=== PATIENT | female | born 1965 | race Caucasian/White ===

== ENCOUNTER 2023-12-30 22:33 | Emergency (ER) | payer BC, SELFPAY ==
--- NOTE | ~2023-12-30 | XR_ITS ---
XR chest 1V portable Ordering provider: Maciel Hartman MD History: 58 years Female with . syncope . Comparison: May 07, 2010 FINDINGS: MEDIASTINUM: The cardiac silhouette is not enlarged. LUNGS: No infiltrates, effusions or pneumothorax. OTHER: No free air under the diaphragm. Degenerative changes of the spine. IMPRESSION: No acute cardiopulmonary pathology. Reviewed, dictated and finalized at location A.
[2023-12-30 22:34] VITALS: BP 103/65; PULSE 72; RESP 15; TEMP 36.3; O2SAT 98
--- NOTE | 2023-12-30 22:42 | ECG_ITS ---
Test Date: 2023-12-30 22:41:17 Measurements Intervals [place] Rate: 70 P: -1 SC: 169 QRS: 78 QRSD: 103 T: 54 QT: 419 QTc: 455 Interpretive Statements SINUS RHYTHM INCOMPLETE RIGHT BUNDLE BRANCH BLOCK [90+ ms QRS DURATION, TERMINAL R IN V1/V2, 40+ ms S IN I/aVL/V4/V5/V6] NONSPECIFIC ST AND T-WAVE ABNORMALITY No previous ECG available for comparison Electronically Signed On 12-31-2023 10:35:52 CDT by Marivel Laureano M.D.
[2023-12-30 23:08] LABS: Basophils Percent Auto 0.6 % (0.2-1.2); Eosinophils Absolute Auto 0.1 K/mm3 (0-0.3); Eosinophils Percent Auto 0.9 % (0-4.4); Hematocrit 39.1 % (37.0-47.0); Hemoglobin 13.1 g/dL (12.0-15.0); Immature Granulocyte Absolute 0.01 K/mm3 (0.00-0.031); Immature Granulocyte Percent A 0.1 % (0-0.5); Lymphocytes Absolute Auto 2.08 K/mm3 (0.9-3.2); Lymphocytes Percent Auto 29.5 % (18.3-44.2); Mean Corpuscular HGB Conc 33.5 g/dl (32-36); Mean Corpuscular Hemoglobin 28.4 pg (26-34); Mean Corpuscular Volume 84.6 fl (80-100); Mean Platelet Volume 9.8 fl (7.4-10.4); Monocytes Absolute Auto 0.4 K/mm3 (0.1-0.6); Neutrophils Absolute Auto 4.4 K/mm3 (1.3-6.7); Neutrophils Percent Auto 62.9 % (45.5-73.1); Platelet Count Result 242 k/mm3 (150-375); Red Blood Count 4.62 M/mm3 (4.2-5.4); Red Cell Distribution Width 12.7 % (11.5-14.5)
[2023-12-30 23:17] VITALS: BP 116/66; BP 119/65; PULSE 79
[2023-12-30 23:17] LABS: Alanine Aminotransferase 22 U/L (6-35); Albumin Level 4.3 g/dL (3.5-5.1); Alkaline Phosphatase 54 U/L (38-126); Anion Gap 11 mmol/L (4-12); Aspartate Amino Transferase 28 U/L (14-36); Bilirubin,Total 0.3 mg/dL (0.2-1.3); Blood Urea Nitrogen 20 mg/dL (7-17); Carbon Dioxide 26 mmol/L (22-30); Chloride 103 mmol/L (98-107); Estimated CRCL calculation 46 ml/min; Estimated Glomerular Filt Rate 46; Glucose 136 mg/dL (65-110); Potassium 3.4 mmol/L (3.4-5.0); Sodium 140 mmol/L (137-145)
[2023-12-30 23:19] VITALS: BP 114/71; PULSE 82
[2023-12-30 23:21] LABS: Magnesium 2.4 mg/dL (1.6-2.3)
[2023-12-30 23:35] LABS: D Dimer < 0.27 ug/mL (<0.48)
[2023-12-30] MEDS: SODIUM CHLORIDE 0.9% IV 1,000 ML 999 ML IV CONT (23:36)
[2023-12-31] MEDS: SODIUM CHLORIDE 0.9% IV 1,000 ML 999 ML IV CONT (00:25)
[2023-12-31 00:41] VITALS: BP 114/75; PULSE 81; RESP 15; O2SAT 97
[2023-12-31 00:52] LABS: Add Urine Microscopic? YES; Appearance Urine Clear (Clear); Bacteria Urine None Seen /hpf; Bilirubin Urine Negative (Negative); Blood Urine Negative (Negative); Color Urine Yellow (Yellow); Glucose Urine UA Negative (Negative); Hyaline Casts Urine Present /lpf; Ketones Urine Trace mg/dL (Negative); Leukocyte Esterase Ur 1+ LEU/UL (Negative); Need Manual Microscopic Reviewed; Nitrate Urine Negative (Negative); Protein Urine 1+ mg/dL (Negative); RBC Urine 0-2 /hpf (0-2); Specific Grav Ur 1.021 (1.001-1.035); Squamous Epithelial Cell Urine Occasional /hpf (Few); WBC Urine 0-5 /hpf (0-3); pH Urine 5.5 (5.0-9.0)
--- NOTE | 2023-12-31 01:20 | ED.GENADULT ---
HPI - General Adult General Chief complaint: Syncope Stated complaint: syncope Time Seen by Provider: 12/30/23 22:50 History of Present Illness HPI narrative: Patient is a 58-year-old female presents emergency department with chief complaint of syncope. Patient had 3 syncopal episodes and during 1 of the episodes blood pressure dropped down in the 80s patient was found have a right bundle branch block on her EKG by EMS the patient denies chest pain reports that she has not been eating and drinking much lately and does tend renal on the dehydrated side. Patient reports that she has had no trauma reports that she has had no prior history of dysrhythmia Related Data Home Medications Medication Instructions Recorded Confirmed atorvastatin 10 mg tablet 10 mg PO DAILY 06/14/22 06/20/23 escitalopram oxalate 10 mg tablet 10 mg PO DAILY 06/14/22 06/20/23 (Lexapro) lisinopril 10 mg tablet 10 mg PO DAILY 06/14/22 06/20/23 Allergies Allergy/AdvReac Type Severity Reaction Status Date / Time No Known Allergies Allergy Verified 12/30/23 22:42 Review of Systems Review of Systems: A 10 system review of systems was completed on the patient and is negative except for what is stated in the HPI. Nursing and ancillary documentation was reviewed. [facility] Past Medical History Medical History Anxiety Depression Encounter for gynecological examination Family history of breast cancer in first degree relative Hyperlipidemia Hypertension Screening for breast cancer Surgical History Surgical History H/O breast biopsy H/O tubal ligation History of delivery x 2 Family History Family History Mother Malignant tumor of urinary bladder Diabetes mellitus Non-Hodgkin lymphoma Social History Social History Smoking status: Former smoker Alcohol intake: never Substance use: never Current Housing: Decline to Answer Concerned About Future Housing: Decline to Answer Difficulty Paying Gas/Electric Bills: Decline to Answer Difficulty Paying for Meds: Decline to Answer Currently Unemployed: Decline to Answer Living arrangements: with family Occupation/Education: retired Gender identity (if verbalized by the patient): Female Sexual Orientation (if Verbalized by the Patient): Straight or Heterosexual Exam Narrative: GENERAL: Well-appearing, well-nourished, and in no acute distress. HEAD: Normocephalic, atraumatic. EYES: PERRLA and EOMI. ENT: Nares clear, no rhinorrhea or epistaxis. Mucous membranes moist. NECK: Supple. CHEST: Clear to auscultation. No respiratory distress. HEART: Regular rate and rhythm. No murmur heard. Normal peripheral pulses. ABDOMEN: Soft, nontender, nondistended, normal active bowel sounds. EXTREMITIES: Normal range of motion. No edema. SKIN: Warm, dry, no rash. NEURO: No focal deficits. Alert and oriented x3. PSYCH: Normal mood and affect. Course Vital Signs Vital signs: Vital Signs Temperature 36.3 C L 12/30/23 22:34 Pulse Rate 72 12/30/23 22:34 Respiratory Rate 15 12/30/23 22:34 Blood Pressure 103/65 12/30/23 22:34 Pulse Oximetry 98 12/30/23 22:34 Oxygen Delivery Room Air 12/30/23 22:34 Temperature 36.3 C L 12/30/23 22:34 Pulse Rate 81 12/31/23 00:41 Respiratory Rate 15 12/31/23 00:41 Blood Pressure 114/75 12/31/23 00:41 Pulse Oximetry 97 12/31/23 00:41 Oxygen Delivery Room Air 12/30/23 22:34 Medical Decision Making MDM Narrative Medical decision making narrative: differential diagnosis includes dysrhythmia, electrolyte abnormality, dehydration, patient did have positive orthostasis was given IV fluids is feeling much better. Electrolytes were obtai
[2023-12-31 01:45] VITALS: BP 128/71; PULSE 84; RESP 14; O2SAT 97
== END 2023-12-31 01:47 | disposition home or self-care (01) ==
PROVIDERS: Emergency Provider Emergency Medicine; PCP Internal Medicine
DX: R55 Syncope and collapse (principal); I10 Essential (primary) hypertension; E78.5 Hyperlipidemia, unspecified; F41.9 Anxiety disorder, unspecified; F32.A Depression, unspecified; Z87.891 Personal history of nicotine dependence; Z79.899 Other long term (current) drug therapy; I45.10 Unspecified right bundle-branch block
CPT/HCPCS: 36415; 71045; 80053; 81001; 83735; 84443; 85025; 85380; 93005; 96360; 96361; 99284; J7030